=== PATIENT | male | born 1970 | race Caucasian/White ===

== ENCOUNTER 2021-12-19 22:49 | Emergency (ER) | payer BC, OTHER ==
[~2021-12-19] VITALS: Ht 177.8 cm; Wt 117.9 kg
[2021-12-19] MEDS ORDERED: LABETALOL HCL 5 MG/ML 4ML SYRINGE IV ONE (23:15)
[2021-12-19] MEDS ORDERED: ASPirin 81 mg TAB PO ONE (23:15)
[2021-12-19] MEDS ORDERED: LABETALOL HCL 5 MG/ML ML 20ML VIAL IV ONE (23:30)
[2021-12-19 23:58] LABS: Basophils # (auto) 0.1 10 ^3/uL (0-0.2); Basophils % (auto) 0.9 % (0.0-2.0); Eosinophils # (auto) 0.2 10 ^3/uL (0-0.8); Eosinophils % (auto) 3.1 % (0.0-7.0); Hematocrit 44.2 % (41.0-53.0); Hemoglobin 15.2 g/dL (13.5-17.5); Lymphocytes # (auto) 2.9 10 ^3/uL (0.4-5.4); Lymphocytes % (auto) 38.2 % (10.0-50.0); Mean Corpuscular Hemoglobin 30.5 pg (28.0-32.0); Mean Corpuscular Hgb Conc. 34.3 g/dL (32.0-36.0); Mean Corpuscular Volume 88.9 fL (80.0-100.0); Monocytes # (auto) 0.9 10 ^3/uL (0-1.3); Monocytes % (auto) 12.1 % (0.0-12.0); Neutrophils # (auto) 3.4 10 ^3/uL (1.6-8.6); Neutrophils % (auto) 45.7 % (37.0-80.0); Nucleated Red Blood Cells % 0.1 %; Red Blood Cells 4.97 10^6/uL (4.5-5.90); Red Cell Distribution Width 12.9 % (11.8-14.3); White Blood Cell 7.5 10^3/uL (4.4-10.8)
[2021-12-20 00:14] LABS: Albumin 3.8 g/dL (3.4-5.0); Calcium 8.6 mg/dL (8.5-10.1); Potassium 3.8 mmol/L (3.5-5.1)
[2021-12-20 00:21] LABS: Bilirubin, Total 0.4 mg/dL (0.2-1.0); Total Protein 7.4 g/dL (6.4-8.2)
[2021-12-20 04:09] VITALS: BP 162/109
[2021-12-20] MEDS ORDERED: ALPR1TAB7 PO (04:12)
== END 2021-12-20 05:10 | disposition home or self-care (01) ==
LOC: ER 22:56
DX: F41.0 Panic disorder [episodic paroxysmal anxiety] (principal); Z88.8 Allergy status to other drugs, medicaments and biological substances
CPT/HCPCS: 36415; 71045; 80053; 84484; 85025; 93005; 96374

== ENCOUNTER 2025-05-05 14:23 | Inpatient (IN) | payer BC, OTHER ==
[~2025-05-05] VITALS: Ht 177.8 cm; Wt 116.7 kg
[2025-05-05] MEDS: SODIUM CHLORIDE 0.9% 1,000 ML IV ONE (14:30)
--- NOTE | 2025-05-05 14:31 | ED.PDOC ---
History of Present Illness HPI Comments 54 year old male was BIBA for the c/c of Intermittent Dizziness. Per EMS pt has been dizzy for the past few weeks with no alleviating factors at this time. Pt states that he feels as if the room is spinning, and has associated N/V as a result. Pt notes his dizziness worsens with movement at this time. No other associated symptoms, modifiers, recent injuries or sick contacts present at this time. Chief Complaint: Dizziness Time Seen by MD: 14:28 Primary Care Provider: DANG Reviewed Notes: Nurses Notes, Corrections Corporal Notes, Medications, Allergies Allergies: Coded Allergies: Meperidine (Verified Allergy, Unknown, 05/05/25) Information Source: Patient, Emergency Med Personnel Mode of Arrival: EMS Severity: Moderate Timing: Weeks Prehospital treatment: None Past Medical History PAST MEDICAL HISTORY: Denies Surgical History: Denies all surgeries Family History Family History: Unknown Social History Smoker: Non-Smoker Alcohol: Denies ETOH Use Drugs: Denies Drug Use Lives In: Home Constitutional: denies: chills, diaphoresis, fatigue, fever, malaise, sweats, weakness, others EENTM: denies: blurred vision, double vision, ear bleeding, ear discharge, ear drainage, ear pain, ear ringing, eye pain, eye redness, hearing loss, mouth pain, mouth swelling, nasal discharge, nose bleeding, nose congestion, nose pain, photophobia, tearing, throat pain, throat swelling, voice changes, others Respiratory: denies: cough, hemoptysis, orthopnea, SOB at rest, shortness of breath, SOB with excertion, stridor, wheezing, others Cardiovascular: denies: chest pain, dizzy spells, diaphoresis, Dyspnea on exertion, edema, irregular heart beat, left arm pain, lightheadedness, palpitations, PND, syncope, others Gastrointestinal: denies: abdomen distended, abdominal pain, blood streaked bowels, constipated, diarrhea, dysphagia, difficulty swallowing, hematemesis, melena, nausea, poor appetite, poor fluid intake, rectal bleeding, rectal pain, vomiting, others Genitourinary: denies: burning, dysuria, flank pain, frequency, hematuria, incontinence, penile discharge, penile sore, pain, testicle pain, testicle swelling, urgency, others Neurological: reports: dizziness; denies: fainting, headache, left sided numbness, left sided weakness, numbness, paresthesia, pre-existing deficit, right sided numbness, right sided weakness, seizure, speech problems, tingling, tremors, weakness, others Musculoskeletal: denies: back pain, gout, joint pain, joint swelling, muscle pain, muscle stiffness, neck pain, others Integumetry: denies: bruises, change in color, change in hair/nails, dryness, laceration, lesions, lumps, rash, wounds, others Allergic/Immunocompromised: denies: Difficulty Healing, Frequent Infections, Hives, Itching, others Hematologic/Lymphatic: denies: anemia, blood clots, easy bleeding, easy bruising, swollen glands, others Endocrine: denies: excessive hunger, excessive sweating, excessive thirst, excessive urination, flushing, intolerance to cold, intolerance to heat, unexplained weight gain, unexplained weight loss, others Psychiatric: denies: anxiety, bipolar disorder, depression, hopeless, panic disorder, schizophrenia, sleepless, suicidal, others All Other Systems: Reviewed and Negative Physical Exam General Appearance: Mild Distress, Normal HEENT: Normal ENT Inspection, Pharynx Normal, TMs Normal Neck: Full Range of Motion, Non-Tender, Normal Respiratory: Chest Non-Tender, Lungs Clear, No Respiratory Distress, Normal Breath Sounds Cardiovascular: No Edema, No JVD, No Murmur, Regular Rate/Rhythm Breast Exam: Deferred Gastrointestinal: Non Tender, No Pulsatile Mass, Soft Genitalia: Deferred Pelvic: Deferred Rectal: Deferred Extremities: No calf tenderness, Normal range of motion, Non-tender, No pedal edema Musculoskeletal : Apperance: Normal Neurologic: Alert, Dizziness, Fainting, No Motor Deficits, Normal Mood Cerebellar Function: Normal Reflexes: Normal Skin: Dry, Normal Color, Warm Lymphatic: No Adenopathy Was a procedure done? Was a procedure done?: No Differential Dx Considerations may include: ACS, CVA, viral syndrome, infectious etiology X-Ray, Labs, Meds, VS Vital Signs Date Time Temp Pulse Resp B/P (MAP) Pulse Ox O2 Delivery O2 Flow Rate FiO2 05/05/25 17:00 82 15 157/104 (121) 92 05/05/25 16:00 81 05/05/25 15:01 Room Air* 0 21 05/05/25 15:00 98.0 83 18 148/98 (115) 92 98.0 05/05/25 14:25 98.0 84 18 161/110 (127) 94 98.0 158/108 (125) Lab Test 05/05/25 17:21 05/05/25 15:25 05/05/25 14:36 Range/Units Urine Color Yellow Yellow Urine Clarity Clear Clear Urine pH 6.5 5.0-9.0 Urine Specific [place] 1.024 1.001-1.035 Urine Protein Trace H Negative Urine Ketones 1+ H Negative Urine Blood Negative Negative /uL Urine Nitrite Negative Negative Urine Bilirubin Negative Negative Urine Urobilinogen Normal Negative mg/dL Urine Leukocyte Esterase Negative Negative /uL Urine RBC <1 0 - 3 /hpf Urine Microscopic WBC < 1 0-3 /HPF Urine Squamous Epithelial Cells Few <5 /hpf Urine Bacteria None seen None Seen /hpf Urine Mucus Few None Seen Urine Glucose Normal Normal mg/dL Sodium Level 141 136-145 mmol/L Potassium Level 3.4 L 3.5-5.1 mmol/L Chloride Level 107 98-107 mmol/L Carbon Dioxide Level 24 20-31 mmol/L Anion Gap 10 5-15 Blood Urea Nitrogen 11 9-23 mg/dL Creatinine 0.94 0.700-1.30 mg/dL Glomerular Filtration Rate Calc 98 >90 mL/min BUN/Creatinine Ratio 11.7 10.0-20.0 Serum Glucose 129 H 74-106 mg/dL Calcium Level 9.1 8.7-10.4 mg/dL White Blood Count 8.1 4.4-10.8 10^3/uL Red Blood Count 4.90 4.5-5.90 10^6/uL Hemoglobin 15.1 13.5-17.5 g/dL Hematocrit 42.9 41.0-53.0 % Mean Corpuscular Volume 87.5 80.0-100.0 fL Mean Corpuscular Hemoglobin 30.8 28.0-32.0 pg Mean Corpuscular Hemoglobin Concent 35.2 32.0-36.0 g/dL Red Cell Distribution Width 14.1 11.8-14.3 % Platelet Count 193 140-450 10^3/uL Mean Platelet Volume 9.0 6.9-10.8 fL Neutrophils (%) (Auto) 71.5 37.0-80.0 % Lymphocytes (%) (Auto) 18.8 10.0-50.0 % Monocytes (%) (Auto) 6.7 0.0-12.0 % Eosinophils (%) (Auto) 1.2 0.0-7.0 % Basophils (%) (Auto) 1.8 0.0-2.0 % Neutrophils # (Auto) 5.8 1.6-8.6 10 ^3/uL Lymphocytes # (Auto) 1.5 0.4-5.4 10 ^3/uL Monocytes # (Auto) 0.5 0-1.3 10 ^3/uL Eosinophils # (Auto) 0.1 0-0.8 10 ^3/uL Basophils # (Auto) 0.1 0-0.2 10 ^3/uL Nucleated Red Blood Cells 0.1 % Troponin I High Sensitivity < 3 L </=54 ng/L Time of 1ST Reevaluation: 14:58 Reevaluation 1ST: Unchanged Patient Education/Counseling: Diagnosis, Treatment Family Education/Counseling: No Family Present SEPSIS Sepsis Screen Orders/Vitals/Labs Physician Orders Head Without Contrast (05/05/25 17:06) Chest Portable (05/05/25 17:06) Vital Signs Date Time Temp Pulse Resp B/P (MAP) Pulse Ox O2 Delivery O2 Flow Rate FiO2 05/05/25 17:00 82 15 157/104 (121) 92 05/05/25 16:00 81 05/05/25 15:01 Room Air* 0 21 05/05/25 15:00 98.0 83 18 148/98 (115) 92 98.0 05/05/25 14:25 98.0 84 18 161/110 (127) 94 98.0 158/108 (125) Laboratory Tests Test 05/05/25 14:36 White Blood Count 8.1 10^3/uL (4.4-10.8) Departure 1 Departure Time of Disposition: 15:39 (Patient's worsening dizziness inability to ambulate. We will treat patient admit patient for further workup and expert consultation) Impression: Primary Impression: Dizziness and giddiness Additional Impression: Near syncope Disposition: 09 ADMITTED INPATIENT Admit to: Med Surg Condition: Serious Critical Care Note Critical Care Time?: No Stability Stability form required: No Heart Score Heart Score: Heart Score Response (Comments) Value History N/A 0 EKG N/A 0 Age N/A 0 Risk Factors N/A 0 Troponin N/A 0 Total 0 I personally scribed for ASHVIN GARDNER MD ([email or web address]) on 05/05/25 at 14:31. Electronically submitted by Mauro Andujar ([email or web address]). ASHVIN GARDNER MD May 05, 2025 14:31
[2025-05-05 14:48] LABS: Basophils # (auto) 0.1 10 ^3/uL (0-0.2); Basophils % (auto) 1.8 % (0.0-2.0); Eosinophils # (auto) 0.1 10 ^3/uL (0-0.8); Eosinophils % (auto) 1.2 % (0.0-7.0); Hematocrit 42.9 % (41.0-53.0); Hemoglobin 15.1 g/dL (13.5-17.5); Lymphocytes # (auto) 1.5 10 ^3/uL (0.4-5.4); Lymphocytes % (auto) 18.8 % (10.0-50.0); Mean Corpuscular Hemoglobin 30.8 pg (28.0-32.0); Mean Corpuscular Hgb Conc. 35.2 g/dL (32.0-36.0); Mean Corpuscular Volume 87.5 fL (80.0-100.0); Monocytes # (auto) 0.5 10 ^3/uL (0-1.3); Monocytes % (auto) 6.7 % (0.0-12.0); Neutrophils # (auto) 5.8 10 ^3/uL (1.6-8.6); Neutrophils % (auto) 71.5 % (37.0-80.0); Nucleated Red Blood Cells % 0.1 %; Platelet Count (auto) 193 10^3/uL (140-450); Red Cell Distribution Width 14.1 % (11.8-14.3); White Blood Cell 8.1 10^3/uL (4.4-10.8)
[2025-05-05] MEDS: MECLIZINE HCL 25 MG TAB PO ONE (15:14)
[2025-05-05] MEDS: LORazepam 2MG/ML-1ML VIAL IV ONE (15:14)
[2025-05-05 16:01] LABS: Anion Gap 10 (5-15); BUN/Creatinine Ratio 11.7 (10.0-20.0)
[2025-05-05 16:02] LABS: Blood Urea Nitrogen 11 mg/dL (9-23); Calcium 9.1 mg/dL (8.7-10.4); Carbon Dioxide 24 mmol/L (20-31); Chloride 107 mmol/L (98-107); Glucose 129 mg/dL (74-106); Potassium 3.4 mmol/L (3.5-5.1); Sodium 141 mmol/L (136-145)
[2025-05-05 17:22] LABS: Urine Bacteria None Seen /hpf (None Seen)
[2025-05-05 17:39] LABS: Urine Blood Negative /uL (Negative); Urine Clarity Clear (Clear); Urine Color Yellow (Yellow); Urine Mucus FEW (None Seen); Urine Protein, UAD TRACE (Negative); Urine Specific Gravity 1.024 (1.001-1.035); Urine Squamous Epithelial Cell FEW /hpf (<5); Urine Urobilinogen Normal (Negative); Urine WBC < 1 /HPF (0-3); Urine pH 6.5 (5.0-9.0)
[2025-05-05] MEDS ORDERED: HYDROcodone-ACET 5/325MG TAB PO PRN (18:00)
[2025-05-05] MEDS ORDERED: NITROGLYCERIN 0.4 MG SL TAB SL PRN (18:00)
[2025-05-05] MEDS ORDERED: MORPHINE SULFATE INJ 2 MG/ml SYRG IV PRN (18:00)
[2025-05-05] MEDS ORDERED: LORazepam 2MG/ML-1ML VIAL IV PRN (18:00)
[2025-05-05] MEDS ORDERED: DOCUSATE SOD 100 MG CAP PO PRN (18:00)
[2025-05-05] MEDS ORDERED: hydrALAZINE HCL 20 MG/ML VL IV PRN (18:00)
--- NOTE | 2025-05-05 18:00 | DVHHP2 ---
History of Present Illness Reason for Visit: Dizziness History of Present Illness The patient is a 54-year-old male who denies past medical history presented to [facility] with complaint of dizziness. As reported by girlfriend, patient has been dizzy for the past few weeks with room spinning sensation, associated nausea, vomiting, getting worse that prompted this visit. Patient was seen and evaluated in the ED, laboratory data shows WBC 8.1, platelets 193, sodium 141, potassium 3.4, BUN 11, creatinine 0.94, glucose 129, troponin three, blood pressure 161/110, heart rate 82, temperature 98.0 F, O2 saturation 92% on oxygen. Head CT showed no acute intracranial abnormality. Patient was given meclizine 50 mg by mouth x 1, please see medication orders section in the computer. On my assessment, patient denied chest pain, no headache, no diaphoresis, no shortness of breath, no nausea, no vomiting, no fever, no chills. Patient was admitted for further evaluation and medical management. Past Medical History Denies past medical history Past Surgical History Denies all surgeries Family History Reviewed, noncontributory to the management of this case. Past Social History The patient lives at home, denies smoking, alcohol or illicit drugs abuse. Review of Systems Constitutional: Yes: Weakness; No: Fever, Chills, Sweats, Malaise, Other Eyes: No: Pain, Vision change, Conjunctivae inflammation, Eyelid inflammation, Other, Redness ENT: No: Ear pain, Ear discharge, Nose pain, Nose discharge, Nose congestion, Mouth pain, Mouth swelling, Throat pain, Throat swelling, Other Respiratory: No: Cough, Dry, Shortness of breath, SOB with excertion, Wheezing, Hemoptysis, Pleuritic Pain, Sputum, Wheezing, Other Cardiovascular: No: Chest Pain, Palpitations, Orthopnea, Paroxysmal Noc. Dyspnea, Edema, Lt Headedness, Other Gastrointestinal: No: Nausea, Vomiting, Abdominal Pain, Diarrhea, Constipation, Melena, Hematochezia, Other Genitourinary: No Dysuria, No Frequency, No Incontinence, No Hematuria, No Retention, No Other Musculoskeletal: No: other, neck pain, shoulder pain, arm pain, back pain, hand pain, leg pain, foot pain Skin: No: Rash, Lesions, Jaundice, Bruising, Other Neurological: Other (Dizziness); No: Weakness, Numbness, Incoordination, Change in speech, Confusion, Seizures Allergies: Coded Allergies: Meperidine (Verified Allergy, Unknown, 05/05/25) Exam Vital Signs Vital Signs Date Time Temp Pulse Resp B/P (MAP) Pulse Ox O2 Delivery O2 Flow Rate FiO2 05/05/25 17:00 82 15 157/104 (121) 92 05/05/25 15:01 Room Air* 0 21 05/05/25 15:00 98.0 98.0 General Appearance: Alert, Oriented X3, Cooperative, No acute distress HEENT: Atraumatic, PERRLA, EOMI, Mucous membr. moist/pink Respiratory: Clear to auscultation, Normal air movement Cardiovascular: Regular rate, Normal S1, Normal S2, No murmurs Abdominal: Normal bowel sounds, Soft, No tenderness, No hepatospenomegaly, No masses Extremities: No clubbing, No cyanosis, No edema, Normal pulses, No tenderness/swelling Skin: No rashes, No breakdown, No significant lesion Neuro: Normal speech, Normal tone, Sensation intact, Cranial nerves 3-12 NL, Reflexes 2+, Other (Generalized weakness) Psych/Mental Status: Mental status NL, Mood NL Labs/Xrays Labs Test 05/05/25 17:21 05/05/25 15:25 05/05/25 14:36 Range/Units Urine Color Yellow Yellow Urine Clarity Clear Clear Urine pH 6.5 5.0-9.0 Urine Specific [place] 1.024 1.001-1.035 Urine Protein Trace H Negative Urine Ketones 1+ H Negative Urine Blood Negative Negative /uL Urine Nitrite Negative Negative Urine Bilirubin Negative Negative Urine Urobilinogen Normal Negative mg/dL Urine Leukocyte Esterase Negative Negative /uL Urine RBC <1 0 - 3 /hpf Urine Microscopic WBC < 1 0-3 /HPF Urine Squamous Epithelial Cells Few <5 /hpf Urine Bacteria None seen None Seen /hpf Urine Mucus Few None Seen Urine Glucose Normal Normal mg/dL Sodium Level 141 136-145 mmol/L Potassium Level 3.4 L 3.5-5.1 mmol/L Chloride Level 107 98-107 mmol/L Carbon Dioxide Level 24 20-31 mmol/L Anion Gap 10 5-15 Blood Urea Nitrogen 11 9-23 mg/dL Creatinine 0.94 0.700-1.30 mg/dL Glomerular Filtration Rate Calc 98 >90 mL/min BUN/Creatinine Ratio 11.7 10.0-20.0 Serum Glucose 129 H 74-106 mg/dL Calcium Level 9.1 8.7-10.4 mg/dL White Blood Count 8.1 4.4-10.8 10^3/uL Red Blood Count 4.90 4.5-5.90 10^6/uL Hemoglobin 15.1 13.5-17.5 g/dL Hematocrit 42.9 41.0-53.0 % Mean Corpuscular Volume 87.5 80.0-100.0 fL Mean Corpuscular Hemoglobin 30.8 28.0-32.0 pg Mean Corpuscular Hemoglobin Concent 35.2 32.0-36.0 g/dL Red Cell Distribution Width 14.1 11.8-14.3 % Platelet Count 193 140-450 10^3/uL Mean Platelet Volume 9.0 6.9-10.8 fL Neutrophils (%) (Auto) 71.5 37.0-80.0 % Lymphocytes (%) (Auto) 18.8 10.0-50.0 % Monocytes (%) (Auto) 6.7 0.0-12.0 % Eosinophils (%) (Auto) 1.2 0.0-7.0 % Basophils (%) (Auto) 1.8 0.0-2.0 % Neutrophils # (Auto) 5.8 1.6-8.6 10 ^3/uL Lymphocytes # (Auto) 1.5 0.4-5.4 10 ^3/uL Monocytes # (Auto) 0.5 0-1.3 10 ^3/uL Eosinophils # (Auto) 0.1 0-0.8 10 ^3/uL Basophils # (Auto) 0.1 0-0.2 10 ^3/uL Nucleated Red Blood Cells 0.1 % Troponin I High Sensitivity < 3 L </=54 ng/L PATIENT: GAUDENCIO JAQUEZ ACCT: [id number] UNIT: [id number] : 1970 LOC: OVERFLOW ROOM / BED: [address] [place] [address] A AGE / SEX: 54 / M ADM STATUS: ADM IN SERVICE [id number] ORDERING PHYSICIAN: ASHVIN GARDNER MD PROCEDURE(s): HWOCT - HEAD WITHOUT CONTRAST REASON: dizziness ORDER NUMBER(s): [id number], ACCESSION NUMBER(s): [id number] EXAM: CT HEAD WITHOUT CONTRAST INDICATION: dizziness TECHNIQUE: CT of the head without intravenous contrast. Radiation Dose Information: CT Dose: CTDI volume is 65.18 mGy. Dose-length product is 1284.18 mGy*cm The dose indicators for CT are the volume Computed Tomography (CT) Dose Index (CTDIvol) and the Dose Length Product (DLP), and are measured in units of mGy a nd mGy-cm, respectively. These indicators are not patient dose, but values generated from the CT scanner acquisition factors. The report includes radiation exposure data for exposures received during this examination. COMPARISON: None FINDINGS: There is no evidence of acute intracranial hemorrhage, extra-axial collection, mass effect, midline shift, herniation or hydrocephalus. The ventricles, sulci and cisterns are age appropriate. The henderson-white differentiation is intact. Patchy periventricular and subcortical white matter hypoattenuation is nonspecific but may be related to small vessel ischemic disease. The visualized paranasal sinuses and mastoid air cells are clear. The surrounding soft tissues and osseous structures are unremarkable. IMPRESSION: 1. No acute intracranial abnormality. 2. No paranasal sinus or mastoid disease. ORDERING PHYSICIAN: ASHVIN GARDNER MD PROCEDURE(s): CXRP - CHEST PORTABLE REASON: dizziness ORDER NUMBER(s): [id number], ACCESSION NUMBER(s): [id number] CHEST RADIOGRAPH Indication: dizziness Technique: Single frontal view of the chest was obtained COMPARISON: None FINDINGS: The cardiac silhouette is enlarged. The lungs demonstrate bilateral patchy airspace opacities. The pulmonary vasculature is prominent. Small bilateral pleural effusions. There is no pneumothorax. Postsurgical changes right shoulder. IMPRESSION: As above Assessment/Plan Assessment/Plan Dizziness and giddiness Hypokalemia Hypertensive urgency Generalized weakness Plan 1. Admit to telemetry unit 2. Breathing treatment 3. Pain control management 4. Management of fluids and electrolytes 5. Consultation for hospitalist 6. Diagnostic tests head CT 7. DVT prophylaxis on SCDs 8. Repeat labs CBC, CMP in a.m. 9. Continue with current medical management 10. Treatment plan discussed with patient and RN. Patient verbalized understanding. Plan discussed with: Patient, Other (RN) My Orders Orders - JIMI AGGARWAL DNP Procedure Category Date Status Time Meclizine Tablet PHA 05/05/25 Verified (Antivert Tablet) 18:00 Hydralazine Injection PHA 05/05/25 Verified (Apresoline Inject 18:00 Amlodipine Tablet PHA 05/06/25 Verified (Norvasc Tablet) 10:00 Amlodipine Tablet PHA 05/05/25 Verified (Norvasc Tablet) 18:00 Lorazepam 2mg/Ml Inj PHA 05/05/25 Verified (Ativan Inj) 18:00 Admit ADMIT 05/05/25 Verified 17:55 Allergies PADILLA 05/05/25 Verified 17:55 Code Status CODE 05/05/25 Verified 17:55 Sodium Chloride Lock PHA 05/05/25 Verified (Saline Lock Ns) 22:00 Problem List: (1) Dizziness and giddiness (2) Hypokalemia (3) Hypertensive urgency (4) Generalized weakness Date of Service: May 05, 2025 Billing Provider: JIMI AGGARWAL DNP Common Visit Codes: [id number] INP/OBS CARE (HIGH) JIMI AGGARWAL DNP May 05, 2025 17:59
[2025-05-05] MEDS: POTASSIUM CHL 20 Meq TABLET PO ONE (18:26)
[2025-05-05] MEDS: amLODIPine BESYLATE 5 MG TAB PO ONE (18:27)
--- NOTE | 2025-05-05 18:42 | DVH ---
EXAM: CT HEAD WITHOUT CONTRAST INDICATION: dizziness TECHNIQUE: CT of the head without intravenous contrast. Radiation Dose Information: CT Dose: CTDI volume is 65.18 mGy. Dose-length product is 1284.18 mGy*cm The dose indicators for CT are the volume Computed Tomography (CT) Dose Index (CTDIvol) and the Dose Length Product (DLP), and are measured in units of mGy and mGy-cm, respectively. These indicators are not patient dose, but values generated from the CT scanner acquisition factors. The report includes radiation exposure data for exposures received during this examination. COMPARISON: None FINDINGS: There is no evidence of acute intracranial hemorrhage, extra-axial collection, mass effect, midline s hift, herniation or hydrocephalus. The ventricles, sulci and cisterns are age appropriate. The henderson-white differentiation is intact. Patchy periventricular and subcortical white matter hypoattenuation is nonspecific but may be related to small vessel ischemic disease. The visualized paranasal sinuses and mastoid air cells are clear. The surrounding soft tissues and osseous structures are unremarkable. IMPRESSION: 1. No acute intracranial abnormality. 2. No paranasal sinus or mastoid disease. HS:Y
--- NOTE | 2025-05-05 18:52 | DVH ---
CHEST RADIOGRAPH Indication: dizziness Technique: Single frontal view of the chest was obtained COMPARISON: None FINDINGS: The cardiac silhouette is enlarged. The lungs demonstrate bilateral patchy airspace opacities. The pu lmonary vasculature is prominent. Small bilateral pleural effusions. There is no pneumothorax. Postsu rgical changes right shoulder. IMPRESSION: As above
[2025-05-05] MEDS: ONDANSETRON HCL 4 MG/2 ML VIAL IV PRN (19:00)
[2025-05-05] MEDS: MECLIZINE HCL 25 MG TAB PO PRN (19:00)
[2025-05-05 19:30] VITALS: PULSE 88; RESP 15; O2SAT 96
[2025-05-05] MEDS: SODIUM CHLOR 0.9% PF (SALINE LOCK) 10ML VIAL/SYR IV SCH (22:04)
[2025-05-05 22:13] VITALS: BP 147/98; PULSE 84; RESP 16; TEMP 97.9; O2SAT 94
[2025-05-05] MEDS: ACETAMINOPHEN 325 MG TAB PO PRN (22:47)
[2025-05-06] VITALS (8 sets, daily range): BP systolic 131–151; BP diastolic 87–99; PULSE 72–82; RESP 16–18; TEMP 97.7–98.2; O2SAT 92–98
[2025-05-06 07:31] LABS: Basophils # (auto) 0 10 ^3/uL (0-0.2); Basophils % (auto) 0.7 % (0.0-2.0); Eosinophils # (auto) 0.1 10 ^3/uL (0-0.8); Eosinophils % (auto) 2.2 % (0.0-7.0); Hematocrit 45.7 % (41.0-53.0); Hemoglobin 16.1 g/dL (13.5-17.5); Lymphocytes # (auto) 1.6 10 ^3/uL (0.4-5.4); Lymphocytes % (auto) 26.1 % (10.0-50.0); Mean Corpuscular Hemoglobin 30.7 pg (28.0-32.0); Mean Corpuscular Hgb Conc. 35.1 g/dL (32.0-36.0); Mean Corpuscular Volume 87.4 fL (80.0-100.0); Monocytes # (auto) 0.5 10 ^3/uL (0-1.3); Monocytes % (auto) 8.6 % (0.0-12.0); Neutrophils # (auto) 3.8 10 ^3/uL (1.6-8.6); Neutrophils % (auto) 62.4 % (37.0-80.0); Nucleated Red Blood Cells % 0.1 %; Platelet Count (auto) 217 10^3/uL (140-450); Red Blood Cells 5.22 10^6/uL (4.5-5.90); Red Cell Distribution Width 13.7 % (11.8-14.3); White Blood Cell 6.2 10^3/uL (4.4-10.8)
[2025-05-06 07:53] LABS: Alanine Aminotransferase 40 U/L (7-40); Albumin 4.3 g/dL (3.2-4.8); Alkaline Phosphatase 49 U/L (46-116); Anion Gap 8 (5-15); Aspartate Aminotransferase 27 U/L (<34); BUN/Creatinine Ratio 8.8 (10.0-20.0); Bilirubin, Total 0.8 mg/dL (0.2-1.0); Calcium 9.4 mg/dL (8.7-10.4); Carbon Dioxide 26 mmol/L (20-31); Chloride 106 mmol/L (98-107); Glucose 93 mg/dL (74-106); Potassium 3.7 mmol/L (3.5-5.1); Sodium 140 mmol/L (136-145); Total Protein 6.8 g/dL (5.7-8.2)
[2025-05-06 07:59] LABS: Blood Urea Nitrogen 8 mg/dL (9-23)
[2025-05-06] MEDS: amLODIPine BESYLATE 5 MG TAB PO SCH (09:37)
--- NOTE | 2025-05-06 14:56 | DVH ---
MRI BRAIN HEAD WO CONTRAST INDICATION: dizzinesss EXAM DATE: 05/06/2025 02:01 PM COMPARISON: None PROCEDURE: Using a 1.5 Kerrie scanner, multisequence multiplanar imaging of the brain was obtained. FINDINGS: The brainshows normal morphology and signal characteristics. No abnormal T2 hyperintensity, diffusion restriction, or susceptibility hypointensity is present. The ventricles are normal in size . The midline structures are intact. The major intracranial flow voids are present. The aerated space s are normal. The orbital contents and extracranial soft tissues appear normal. IMPRESSION: No acute abnormal MRI findings of the brain.
--- NOTE | 2025-05-06 16:24 | DVHPN2 ---
Subjective still feeling dizziness Reviewed: H&P, Labs Changes from previous H/P or p: No Changes Eyes: No Pain, No Vision change, No Conjunctivae inflammation, No Eyelid inflammation, No Other, No Redness ENT: No Ear pain, No Ear discharge, No Nose pain, No Nose discharge, No Nose congestion, No Mouth pain, No Mouth swelling, No Throat pain, No Throat swelling, No Other Cardiovascular: No Chest Pain, No Palpitations, No Orthopnea, No Paroxysmal Noc. Dyspnea, No Edema, No Lt Headedness, No Other Respiratory: No Cough, No Dry, No Shortness of breath, No SOB with excertion, No Wheezing, No Hemoptysis, No Pleuritic Pain, No Sputum, No Other Gastrointestinal: No Nausea, No Vomiting, No Abdominal Pain, No Diarrhea, No Constipation, No Melena, No Hematochezia, No Other Genitourinary: No Dysuria, No Frequency, No Incontinence, No Hematuria, No Retention, No Other Musculoskeletal: No other, No neck pain, No shoulder pain, No arm pain, No back pain, No hand pain, No leg pain, No foot pain Skin: No Rash, No Lesions, No Jaundice, No Bruising, No Other Objective Vitals Vital Signs Date Time Temp Pulse Resp B/P (MAP) Pulse Ox O2 Delivery O2 Flow Rate FiO2 05/06/25 12:56 97.8 75 16 142/90 (107) 92 97.8 05/06/25 08:00 Room Air* 0 21 Intake/Output Intake and Output 05/06/25 07:00 Intake Total 1400 ml Balance 1400 ml Intake Oral 400 ml IV Total 1000 ml # Voids 2 General Appearance: Alert, Oriented X3 HEENT: Atraumatic Lungs: Clear to auscultation Cardiovascular: Regular rate, Normal S1, Normal S2 Abdomen: Normal bowel sounds Medications Current Medications Medications Dose Ordered Sig/Ha Route Start Time Stop Time Status Last Admin Dose Admin Meclizine HCl 25 mg Q8HPRN PRN PO 05/05/25 18:00 05/06/25 09:37 25 MG Hydralazine HCl 10 mg Q6HP PRN IV 05/05/25 18:00 Amlodipine Besylate 5 mg DAILY PO 05/06/25 10:00 05/06/25 09:37 5 MG Lorazepam 0.5 mg Q8HP PRN IV 05/05/25 18:00 Sodium Chloride 10 ml Q8HR IV 05/05/25 22:00 05/06/25 14:02 10 ML Acetaminophen/ Hydrocodone Bitart 1 tab Q4HP PRN PO 05/05/25 18:00 Ondansetron HCl 4 mg Q4HP PRN IV 05/05/25 18:00 05/05/25 19:00 4 MG Docusate Sodium 100 mg BIDPRN PRN PO 05/05/25 18:00 Acetaminophen 650 mg Q6HP PRN PO 05/05/25 18:00 05/06/25 10:43 650 MG Nitroglycerin 0.4 mg Q5MINP PRN SL 05/05/25 18:00 Morphine Sulfate 2 mg Q30M PRN IV 05/05/25 18:00 Laboratory Results Laboratory Tests 05/06/25 07:06 Chemistry Test 05/06/25 07:06 Albumin 4.3 g/dL (3.2-4.8) Calcium Level 9.4 mg/dL (8.7-10.4) Total Protein 6.8 g/dL (5.7-8.2) LFT Test 05/06/25 07:06 Alanine Aminotransferase (ALT) 40 U/L (7-40) Alkaline Phosphatase 49 U/L (46-116) Aspartate Amino Transferase (AST) 27 U/L (<34) Total Bilirubin 0.8 mg/dL (0.2-1.0) Urinalysis Test 05/05/25 17:21 Urine Color Yellow (Yellow) Urine Clarity Clear (Clear) Urine pH 6.5 (5.0-9.0) Urine Specific [place] 1.024 (1.001-1.035) Urine Protein Trace (Negative) H Urine Ketones 1+ (Negative) H Urine Blood Negative /uL (Negative) Urine Nitrite Negative (Negative) Urine Bilirubin Negative (Negative) Urine Urobilinogen Normal mg/dL (Negative) Urine Leukocyte Esterase Negative /uL (Negative) Urine RBC <1 /hpf (0 - 3) Urine Microscopic WBC < 1 /HPF (0-3) Urine Squamous Epithelial Cells Few /hpf (<5) Urine Bacteria None seen /hpf (None Seen) Urine Mucus Few (None Seen) Urine Glucose Normal mg/dL (Normal) Assessment/Plan Assessment/Plan Dizziness and giddiness Hypokalemia Hypertensive urgency Generalized weakness Replace K today with IV due to nausea MRI brain Continue amlodipine PRN hydralazine for systolic above 160 Monitor bmp daily Dispo: Dc tomorrow if workup negative Plan discussed with: Patient My Orders Orders - TODD RICHARDS MD Procedure Category Date Status Time * Pharmacy Scheduler CONS 05/06/25 Transmitted Consult Brain Head Wo Contrast MRI 05/06/25 Resulted 13:28 Imaging Transfer ORDERS 05/06/25 Transmitted Request 15:54 Date of Service: May 06, 2025 Billing Provider: TODD RICHARDS MD Common Visit Codes: [id number] INP/OBS CARE(HIGH) TODD RICHARDS MD May 06, 2025 16:24
[2025-05-07] VITALS (8 sets, daily range): BP systolic 127–151; BP diastolic 81–103; PULSE 69–93; RESP 16–18; TEMP 97.6–98; O2SAT 93–98
[2025-05-07 07:14] LABS: Chloride 107 mmol/L (98-107); Potassium 3.8 mmol/L (3.5-5.1); Sodium 141 mmol/L (136-145)
[2025-05-07 07:15] LABS: Anion Gap 9 (5-15); Calcium 9.4 mg/dL (8.7-10.4); Carbon Dioxide 25 mmol/L (20-31)
[2025-05-07 07:20] LABS: BUN/Creatinine Ratio 12.4 (10.0-20.0); Blood Urea Nitrogen 11 mg/dL (9-23); Glucose 92 mg/dL (74-106)
--- NOTE | 2025-05-07 11:47 | DVHPN2 ---
Subjective The patient is seen and examined at bedside. The patient at bedside. The patient complained of severe dizziness. He can not stand up because of the dizziness. The patient also nausea but no vomiting. Reviewed: Care Plan, H&P, Labs, Medications Changes from previous H/P or p: No Changes Eyes: No Pain, No Vision change, No Conjunctivae inflammation, No Eyelid inflammation, No Other, No Redness ENT: No Ear pain, No Ear discharge, No Nose pain, No Nose discharge, No Nose congestion, No Mouth pain, No Mouth swelling, No Throat pain, No Throat swelling, No Other Cardiovascular: No Chest Pain, No Palpitations, No Orthopnea, No Paroxysmal Noc. Dyspnea, No Edema, No Lt Headedness, No Other Respiratory: No Cough, No Dry, No Shortness of breath, No SOB with excertion, No Wheezing, No Hemoptysis, No Pleuritic Pain, No Sputum, No Other Gastrointestinal: No Nausea, No Vomiting, No Abdominal Pain, No Diarrhea, No Constipation, No Melena, No Hematochezia, No Other Genitourinary: No Dysuria, No Frequency, No Incontinence, No Hematuria, No Retention, No Other Musculoskeletal: No other, No neck pain, No shoulder pain, No arm pain, No back pain, No hand pain, No leg pain, No foot pain Skin: No Rash, No Lesions, No Jaundice, No Bruising, No Other Objective Vitals Vital Signs Date Time Temp Pulse Resp B/P (MAP) Pulse Ox O2 Delivery O2 Flow Rate FiO2 05/07/25 09:40 147/98 05/07/25 08:48 97.6 72 16 93 97.6 05/07/25 08:00 Room Air* 0 21 Intake/Output Intake and Output 05/07/25 07:00 Intake Total 1000 ml Balance 1000 ml Intake Oral 1000 ml # Voids 4 # Bowel Movements 1 General Appearance: Alert, Oriented X3, Cooperative HEENT: Atraumatic, PERRLA, EOMI, Mucous membr. moist/pink Neck: Supple Lungs: Clear to auscultation, Normal air movement Cardiovascular: Regular rate, Normal S1, Normal S2, No murmurs, Gallops, Rubs, Other Abdomen: Normal bowel sounds Neuro: Cranial nerves 3-12 NL Psych/Mental Status: Mental status NL Medications Current Medications Medications Dose Ordered Sig/Ha Route Start Time Stop Time Status Last Admin Dose Admin Meclizine HCl 25 mg Q8HPRN PRN PO 05/05/25 18:00 05/07/25 08:50 25 MG Hydralazine HCl 10 mg Q6HP PRN IV 05/05/25 18:00 Amlodipine Besylate 5 mg DAILY PO 05/06/25 10:00 05/07/25 09:40 5 MG Lorazepam 0.5 mg Q8HP PRN IV 05/05/25 18:00 Sodium Chloride 10 ml Q8HR IV 05/05/25 22:00 05/07/25 04:48 10 ML Acetaminophen/ Hydrocodone Bitart 1 tab Q4HP PRN PO 05/05/25 18:00 Ondansetron HCl 4 mg Q4HP PRN IV 05/05/25 18:00 05/05/25 19:00 4 MG Docusate Sodium 100 mg BIDPRN PRN PO 05/05/25 18:00 Acetaminophen 650 mg Q6HP PRN PO 05/05/25 18:00 05/06/25 10:43 650 MG Nitroglycerin 0.4 mg Q5MINP PRN SL 05/05/25 18:00 Morphine Sulfate 2 mg Q30M PRN IV 05/05/25 18:00 Laboratory Results Laboratory Tests 05/06/25 07:06 05/07/25 06:37 Chemistry Test 05/07/25 06:37 Calcium Level 9.4 mg/dL (8.7-10.4) Urinalysis Test 05/05/25 17:21 Urine Color Yellow (Yellow) Urine Clarity Clear (Clear) Urine pH 6.5 (5.0-9.0) Urine Specific [place] 1.024 (1.001-1.035) Urine Protein Trace (Negative) H Urine Ketones 1+ (Negative) H Urine Blood Negative /uL (Negative) Urine Nitrite Negative (Negative) Urine Bilirubin Negative (Negative) Urine Urobilinogen Normal mg/dL (Negative) Urine Leukocyte Esterase Negative /uL (Negative) Urine RBC <1 /hpf (0 - 3) Urine Microscopic WBC < 1 /HPF (0-3) Urine Squamous Epithelial Cells Few /hpf (<5) Urine Bacteria None seen /hpf (None Seen) Urine Mucus Few (None Seen) Urine Glucose Normal mg/dL (Normal) Labs and/or images reviewed: Labs reviewed by me Assessment/Plan Assessment/Plan Dizziness and giddiness Hypokalemia Hypertensive urgency Generalized weakness Replace K today with IV due to nausea MRI brain negative for acute CVA Continue amlodipine PRN hydralazine for systolic above 160 Monitor bmp daily I am going to add Benadryl 25 mg IV Q 8 hours p.r.n. for nausea and vomiting and dizziness. Continuing meclizine for dizziness. Addendum: I spoke with Dr. Lorena Ferreira, the hospitalist for [facility]. I request transfer this patient to [facility] which the patient insurance belong. I explained to Dr. Ferreira that the patient is still very dizzy and unsafe to be discharged home. He needs further hospitalization. Per Dr. Ferreira, the patient did not need any hospitalization. He recommended to discharge the patient either to home or penitentiary home facility for vestibular training. He declined to accept the patient back to [facility] or transfer the patient to [facility]. This medical document was created using an electronic medical record system with [employer] direct computerized dictation system. Although this document has been carefully reviewed, there may still be some phonetic and typographical errors. These areas are purely typographical due to imperfections of the software programs, and do not reflect any compromise in the patient's medical care. Plan discussed with: Patient, Spouse Date of Service: May 07, 2025 Billing Provider: SHAINA REY MD Common Visit Codes: [id number] INP/OBS CARE(HIGH) SHAINA REY MD May 07, 2025 11:47
[2025-05-07] MEDS ORDERED: MECL-90 PO (12:39)
[2025-05-07] MEDS ORDERED: AML5T PO (12:39)
[2025-05-07] MEDS ORDERED: diphenhdrAMINE HCL 25 MG CAP PO PRN (12:45)
[2025-05-07 13:18] LABS: Cholesterol 266 mg/dL (< 200); HDL Cholesterol 46 mg/dL (40-59); LDL Cholesterol 219 mg/dL (< 100); Triglycerides 170 mg/dL (< 150)
[2025-05-07] MEDS: diphenhdrAMINE HCL 25 MG CAP PO PRN (20:38)
[2025-05-08] VITALS (7 sets, daily range): BP systolic 142–157; BP diastolic 95–110; PULSE 65–81; RESP 16–18; TEMP 36.6; O2SAT 96–97
[2025-05-08 06:25] LABS: Calcium 9.1 mg/dL (8.7-10.4); Chloride 104 mmol/L (98-107); Sodium 139 mmol/L (136-145)
[2025-05-08 06:26] LABS: Anion Gap 10 (5-15); Carbon Dioxide 25 mmol/L (20-31)
[2025-05-08 06:31] LABS: BUN/Creatinine Ratio 15.5 (10.0-20.0); Blood Urea Nitrogen 13 mg/dL (9-23); Glucose 93 mg/dL (74-106)
[2025-05-08 06:39] LABS: Potassium 3.5 mmol/L (3.5-5.1)
--- NOTE | 2025-05-08 11:37 | DVHPN2 ---
Subjective The patient is seen and examined at bedside. The patient at bedside. The patient complained of severe dizziness. He can not stand up because of the dizziness. The patient also nausea but no vomiting. Reviewed: Care Plan, H&P, Labs, Medications Eyes: No Pain, No Vision change, No Conjunctivae inflammation, No Eyelid inflammation, No Other, No Redness ENT: No Ear pain, No Ear discharge, No Nose pain, No Nose discharge, No Nose congestion, No Mouth pain, No Mouth swelling, No Throat pain, No Throat swelling, No Other Cardiovascular: No Chest Pain, No Palpitations, No Orthopnea, No Paroxysmal Noc. Dyspnea, No Edema, No Lt Headedness, No Other Respiratory: No Cough, No Dry, No Shortness of breath, No SOB with excertion, No Wheezing, No Hemoptysis, No Pleuritic Pain, No Sputum, No Other Gastrointestinal: No Nausea, No Vomiting, No Abdominal Pain, No Diarrhea, No Constipation, No Melena, No Hematochezia, No Other Genitourinary: No Dysuria, No Frequency, No Incontinence, No Hematuria, No Retention, No Other Musculoskeletal: No other, No neck pain, No shoulder pain, No arm pain, No back pain, No hand pain, No leg pain, No foot pain Skin: No Rash, No Lesions, No Jaundice, No Bruising, No Other Objective Vitals Vital Signs Date Time Temp Pulse Resp B/P (MAP) Pulse Ox O2 Delivery O2 Flow Rate FiO2 05/08/25 10:21 142/95 05/08/25 08:30 97.7 78 18 97 97.7 05/08/25 08:00 Room Air* 0 21 Intake/Output Intake and Output 05/08/25 07:00 Intake Total 2150 ml Output Total 1000 ml Balance 1150 ml Intake Oral 2150 ml Output Urine Total 1000 ml # Voids 3 General Appearance: Alert, Oriented X3, Cooperative HEENT: Atraumatic, PERRLA, EOMI, Mucous membr. moist/pink Neck: Supple Lungs: Clear to auscultation, Normal air movement Cardiovascular: Regular rate, Normal S1, Normal S2, No murmurs, Gallops, Rubs, Other Abdomen: Normal bowel sounds Neuro: Cranial nerves 3-12 NL Psych/Mental Status: Mental status NL Medications Current Medications Medications Dose Ordered Sig/Ha Route Start Time Stop Time Status Last Admin Dose Admin Meclizine HCl 25 mg Q8HPRN PRN PO 05/05/25 18:00 05/07/25 20:38 25 MG Hydralazine HCl 10 mg Q6HP PRN IV 05/05/25 18:00 Amlodipine Besylate 5 mg DAILY PO 05/06/25 10:00 05/08/25 10:21 5 MG Lorazepam 0.5 mg Q8HP PRN IV 05/05/25 18:00 Sodium Chloride 10 ml Q8HR IV 05/05/25 22:00 05/08/25 04:56 10 ML Acetaminophen/ Hydrocodone Bitart 1 tab Q4HP PRN PO 05/05/25 18:00 Ondansetron HCl 4 mg Q4HP PRN IV 05/05/25 18:00 05/05/25 19:00 4 MG Docusate Sodium 100 mg BIDPRN PRN PO 05/05/25 18:00 Acetaminophen 650 mg Q6HP PRN PO 05/05/25 18:00 05/06/25 10:43 650 MG Nitroglycerin 0.4 mg Q5MINP PRN SL 05/05/25 18:00 Morphine Sulfate 2 mg Q30M PRN IV 05/05/25 18:00 Diphenhydramine HCl 25 mg Q6HP PRN PO 05/07/25 13:45 05/07/25 20:38 25 MG Laboratory Results Laboratory Tests 05/06/25 07:06 05/08/25 04:50 Chemistry Test 05/08/25 04:50 Calcium Level 9.1 mg/dL (8.7-10.4) Urinalysis Test 05/05/25 17:21 Urine Color Yellow (Yellow) Urine Clarity Clear (Clear) Urine pH 6.5 (5.0-9.0) Urine Specific [place] 1.024 (1.001-1.035) Urine Protein Trace (Negative) H Urine Ketones 1+ (Negative) H Urine Blood Negative /uL (Negative) Urine Nitrite Negative (Negative) Urine Bilirubin Negative (Negative) Urine Urobilinogen Normal mg/dL (Negative) Urine Leukocyte Esterase Negative /uL (Negative) Urine RBC <1 /hpf (0 - 3) Urine Microscopic WBC < 1 /HPF (0-3) Urine Squamous Epithelial Cells Few /hpf (<5) Urine Bacteria None seen /hpf (None Seen) Urine Mucus Few (None Seen) Urine Glucose Normal mg/dL (Normal) Assessment/Plan Assessment/Plan Dizziness and giddiness Hypokalemia Hypertensive urgency Generalized weakness Replace K today with IV due to nausea MRI brain negative for acute CVA Continue amlodipine PRN hydralazine for systolic above 160 Monitor bmp daily I am going to add Benadryl 25 mg IV Q 8 hours p.r.n. for nausea and vomiting and dizziness. Continuing meclizine for dizziness. Addendum: I spoke with Dr. Lorena Ferreira, the hospitalist for [facility]. I request transfer this patient to [facility] which the patient insurance belong. I explained to Dr. Ferreira that the patient is still very dizzy and unsafe to be discharged home. He needs further hospitalization. Per Dr. Ferreira, the patient did not need any hospitalization. He recommended to discharge the patient either to home or nursing home home facility for vestibular training. He declined to accept the patient back to [facility] or transfer the patient to [facility]. This medical document was created using an electronic medical record system with [employer] direct computerized dictation system. Although this document has been carefully reviewed, there may still be some phonetic and typographical errors. These areas are purely typographical due to imperfections of the software programs, and do not reflect any compromise in the patient's medical care. My Orders Orders - SHAINA REY MD Procedure Category Date Status Time * Bogger Operator CONS 05/07/25 Transmitted Consult Discharge DISCHARGE 05/07/25 Transmitted 12:39 Diphenhdramine PHA 05/07/25 In Process Capsule (Benadryl 13:45 SHAINA REY MD May 08, 2025 11:37
[2025-05-08] MEDS ORDERED: ATORVASTATIN 20 MG TAB PO SCH (22:00)
--- NOTE | 2025-05-12 14:12 | ECG ---
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
--- NOTE | 2025-05-13 23:01 | DVHDS2 ---
Discharge Summary Date of Admission May 05, 2025 at 17:55 Date of Discharge: May 08, 2025 Admitting Diagnosis Dizziness and giddiness Hypokalemia Hypertensive urgency Generalized weakness Labs/Diagnostic Data: Laboratory Results Test 05/08/25 04:50 05/07/25 06:37 05/06/25 07:06 05/05/25 17:21 Sodium Level 139 mmol/L (136-145) Potassium Level 3.5 mmol/L (3.5-5.1) Chloride Level 104 mmol/L (98-107) Carbon Dioxide Level 25 mmol/L (20-31) Anion Gap 10 (5-15) Blood Urea Nitrogen 13 mg/dL (9-23) Creatinine 0.84 mg/dL (0.700-1.30) Glomerular Filtration Rate Calc 105 mL/min (>90) BUN/Creatinine Ratio 15.5 (10.0-20.0) Serum Glucose 93 mg/dL (74-106) Calcium Level 9.1 mg/dL (8.7-10.4) Triglycerides Level 170 mg/dL (< 150) Cholesterol Level 266 mg/dL (< 200) LDL Cholesterol 219 mg/dL (< 100) HDL Cholesterol 46 mg/dL (40-59) White Blood Count 6.2 10^3/uL (4.4-10.8) Red Blood Count 5.22 10^6/uL (4.5-5.90) Hemoglobin 16.1 g/dL (13.5-17.5) Hematocrit 45.7 % (41.0-53.0) Mean Corpuscular Volume 87.4 fL (80.0-100.0) Mean Corpuscular Hemoglobin 30.7 pg (28.0-32.0) Mean Corpuscular Hemoglobin Concent 35.1 g/dL (32.0-36.0) Red Cell Distribution Width 13.7 % (11.8-14.3) Platelet Count 217 10^3/uL (140-450) Mean Platelet Volume 9.4 fL (6.9-10.8) Neutrophils (%) (Auto) 62.4 % (37.0-80.0) Lymphocytes (%) (Auto) 26.1 % (10.0-50.0) Monocytes (%) (Auto) 8.6 % (0.0-12.0) Eosinophils (%) (Auto) 2.2 % (0.0-7.0) Basophils (%) (Auto) 0.7 % (0.0-2.0) Neutrophils # (Auto) 3.8 10 ^3/uL (1.6-8.6) Lymphocytes # (Auto) 1.6 10 ^3/uL (0.4-5.4) Monocytes # (Auto) 0.5 10 ^3/uL (0-1.3) Eosinophils # (Auto) 0.1 10 ^3/uL (0-0.8) Basophils # (Auto) 0 10 ^3/uL (0-0.2) Nucleated Red Blood Cells 0.1 % Total Bilirubin 0.8 mg/dL (0.2-1.0) Aspartate Amino Transferase (AST) 27 U/L (<34) Alanine Aminotransferase (ALT) 40 U/L (7-40) Alkaline Phosphatase 49 U/L (46-116) Total Protein 6.8 g/dL (5.7-8.2) Albumin 4.3 g/dL (3.2-4.8) Urine Color Yellow (Yellow) Urine Clarity Clear (Clear) Urine pH 6.5 (5.0-9.0) Urine Specific [place] 1.024 (1.001-1.035) Urine Protein Trace (Negative) Urine Ketones 1+ (Negative) Urine Blood Negative /uL (Negative) Urine Nitrite Negative (Negative) Urine Bilirubin Negative (Negative) Urine Urobilinogen Normal mg/dL (Negative) Urine Leukocyte Esterase Negative /uL (Negative) Urine RBC <1 /hpf (0 - 3) Urine Microscopic WBC < 1 /HPF (0-3) Urine Squamous Epithelial Cells Few /hpf (<5) Urine Bacteria None seen /hpf (None Seen) Urine Mucus Few (None Seen) Urine Glucose Normal mg/dL (Normal) Test 05/05/25 14:36 Troponin I High Sensitivity < 3 ng/L (</=54) Other Laboratory Tests 05/08/25 04:50 05/06/25 07:06 Brief Hx & Hospital Course: This is a 54 years old male with no known past medical history come to emergency department because of dizziness. The patient had feel that the room spinning. He also feel nausea and vomiting couple times. The patient came to emergency department for evaluation. His CT head showed no acute intracranial abnormality. Patient was given meclizine 50 mg once and the dizziness improved. The patient was found to have hypertension urgency with blood pressure of 160/110. The patient stated that he did not know he had hypertension. This is the 1st time he had this diagnosis. The patient was started on hydralazine IV every 6 hours p.r.n. for systolic greater than 160. The patient was started on Norvasc 5 mg one tablet p.o. daily. The patient's blood pressure better controlled. I am going to discharge him home today. Advised him to follow up with primary care physician 1-2 weeks. Activity as tolerated. Diet low-salt low-cholesterol diet. Physical exam: HEENT: Normocephalic atraumatic pupils equal react to light and accommodation. Extraocular muscles intact, conjunctiva pink, oropharynx moist, no thrush, no exudate. Lymphatic: No lymphadenopathy Cardiovascular exam: S1, S2 was heard. No murmurs, rubs, gallops Lung: Clear on auscultation bilaterally, no wheeze, rale, rhonchi. GI: Abdominal soft, nondistended, nontenderness, positive bowel sounds. Extremity: No crepitus, cyanosis, edema. Pedal pulses present bilateral. Full range of motion. Skin: Normal turgor, no rash. Psych: Alert, oriented x3. Neurology: No focal deficits, cranial nerve II to XII grossly intact. This medical document was created using an electronic medical record system with [employer] direct computerized dictation system. Although this document has been carefully reviewed, there may still be some phonetic and typographical errors. These areas are purely typographical due to imperfections of the software programs, and do not reflect any compromise in the patient's medical care. Condition at Discharge: Stable Final Diagnosis/Problems List dizziness Hypokalemia Hypertensive urgency Generalized weakness Discharge Disposition: Home Discharge Instruct/Medications Diet: Cardiac 2g Na,low cholest Activity: No Restrictions, As Tolerated Follow Up/Referral: pcp 1-2 weeks Medications: See med list Discharge Statement: "Patient was advised to return to the ER or call 911 if any headaches, dizziness, shortness of breath, chest pain, abdominal pain, bleeding, fevers, or worsening of medical condition. Patient was counseled about treatment plan, medications, possible side effects, patientverbalized understanding. All questions were answered to the best of my ability. This discharge took greater then 30 minutes in planning, reviewing documentation, counseling the patient, and discussing with other team members." ASSESSMENT ASSESSMENT Assessment dizziness HTN urgency Date of Service: May 08, 2025 Billing Provider: SHAINA REY MD Common Visit Codes: 15086-VPG/OBS DISCH DAY >30min SHAINA REY MD May 13, 2025 23:01
== END 2025-05-08 19:30 | disposition home or self-care (01) | DRG 305 ==
LOC: EDBD 14:23 → ER 14:23 → OVERFLOW 17:55 → TELE-WESTW 23:14
PROVIDERS: ADMIT Internal Medicine; ATTEND Internal Medicine
DX: I16.0 Hypertensive urgency (principal); E87.6 Hypokalemia
CPT/HCPCS: 36415; 70450; 70551; 71045; 80048; 80053; 80061; 81001; 84484; 85025; 93005; 96361; 96374; 96375; 97163; G0378; J2405